=== PATIENT | male | born 1990 | race African-American/Black ===

== ENCOUNTER 2016-11-02 19:20 | Emergency (ER) ==
[2016-11-02 19:32] VITALS: BP 126/74
--- NOTE | 2016-11-02 19:50 | PROVIDER DOCUMENTATION ---
HPI-EENT General - General Chief Complaint: Eye Complaint Stated Complaint: POSS PINK EYE Time Seen by Provider: 11/02/16 19:34 Source: patient Allergies/Adverse Reactions: Patient Allergies Allergy/AdvReac Type Severity Reaction Status Date / Time No Known Allergies Allergy Verified 10/15/16 05:27 - History of Present Illness-EENT General Nature of Presenting Problem: 26 y/o AAM c/o bilateral conjunctivitis, that started 2 days ago in the left eye and then this morning int he right. Denies chemical exposure. States they eyes itch, but do not hurt. Denies fevers, chills, changes in vision or blurry vision, cough, congestion, ear pain, or other symptoms. Denies trauma Review of Systems - Adult - REVIEW OF SYSTEMS - ADULT Constitutional: reports: no symptoms reported. denies: chills, fever, fatique Eyes: reports: see HPI, redness. denies: discharge, dry eyes, decreased vision , blurred vision, double vision, eye pain Ears, Nose, Mouth & Throat: reports: no symptoms reported. denies: ear pain, nose pain, throat pain Cardiovascular: reports: no symptoms reported. denies: chest pain, palpitations Respiratory: reports: no symptoms reported. denies: cough, shortness of breath , wheezing Gastrointestinal: reports: no symptoms reported. denies: abdominal pain, diarrhea, nausea, vomiting Genitourinary: reports: no symptoms reported. denies: dysuria, discharge, frequency, incontinence Musculoskeletal: reports: no symptoms reported Integumentary: reports: no symptoms reported. denies: rash Neurological: reports: no symptoms reported. denies: ataxia, dizziness/vertigo , headache/migraines Psychiatric: reports: no symptoms reported Endocrine: reports: no symptoms reported Hematologic/Lymphatic: reports: no symptoms reported Allergic/Immunologic: reports: no symptoms reported All Other Systems: Reviewed and Negative Past History - Adult - PAST MEDICAL HISTORY-ADULT Review of Records: reports: Old Records Reviewed, Nursing Assessment Review, Medications Reviewed, Social history reviewed & non-contributory. Major Childhood Illnesses: reports: denies history Cardiovascular: reports: denies history Respiratory: reports: asthma Gastrointestinal: reports: denies history Genitourinary: reports: denies history Musculoskeletal: reports: denies history Neurological: reports: denies history Endocrine/Immune: reports: denies history Other Conditions: reports: denies history - PRIOR SURGERIES/PROCEDURES Surgical/Procedure History: reports: other (head surgery as infants) - IMMUNIZATION STATUS Childhood Immunizations: See Nurse Assessment Flu Vaccine: See Nurse Assessment - FAMILY HISTORY Family History: reviewed, not pertinent - SOCIAL HISTORY Smoking: less than 1 pack/day Provider spent 3-5 mins advising pt. on dangers of tobacco.: Discussed manners to quit use, and f/u contacts for add'l counseling. Substance Use: none/never Alcohol Use Frequency: never Physical Exam- EENT - Physical Exam EENT Initial Vital Signs Reviewed: Yes General Appearance: appears well, alert, no apparent distress Eye Exam: bilateral eye: PERRL, EOMI, conjunctival inflammation (with obvious discarge) Ear Exam: bilateral ear: auricle normal, canal normal, TM normal Nasal Exam: normal inspection Throat Exam: normal mouth inspection, pharynx normal Respiratory: chest non-tender, lungs clear, normal breath sounds, no pleuratic chest pain, no respiratory distress, no accessory muscle use. negative: respiratory distress, decreased breath sounds, accessory muscle use, crackles, rales, rhonchi, wheezing Cardiovascular: normal peripheral pulses, regular rate, rhythm, no edema, no gallop, no JVD, no murmur Lymphatic: no adenopathy Extremity: normal gait Integumentary: normal color, normal turgor, warm/dry Neurologic: grossly normal, no motor/sensory deficits Psych/Mental Status: AL, normal mood/affect, normal thought content, normal thought process, oriented x 3 Progress - PLAN OF CARE/RESULTS Progress/Plan/Lab Results: Vital Signs Temp Pulse Resp BP Pulse Ox 11/02/16 19:28 99.0 F 103 H 20 126/74 100 No Known Allergies Allergy (Verified 10/15/16 05:27) Albuterol Sulfate Inhaler [Ventolin Hfa] 2 puff INH Q6H PRN PRN #1 inhaler 07/25 Kenn/Polymyx/Dexameth Oph Oint [Maxitrol Eye Ointment] 1 applicatn BOTH EYES 4XDAY #1 tube 11/02/16 Departure - Departure Time of Disposition Order: 19:45 DIAGNOSIS: Conjunctivitis Qualifiers: Conjunctivitis type: acute Acute conjunctivitis type: bacterial Laterality: bilateral Qualified Code(s): H10.33 - Unspecified acute conjunctivitis, bilateral Disposition: HOME 01 Certified Medical Emergency: Emergent Condition: Stable Additional Instructions: Good hand washing ED Follow Up Instructions: You have been treated by a care provider in the Emergency Department. These instructions are being provided to you so you can have an understanding of how to care for yourself upon discharge. Upon discharge from the Emergency Department, you are responsible for making arrangements for follow-up care by a physician of your choice. Take all prescribed medications as directed. Return to the Emergency Department immediately for any new or worsening symptoms. You may call the Physician Referral phone number at [phone] to obtain a list of Physicians who are taking new patients. Prescriptions: Kenn/Polymyx/Dexameth Oph Oint [Maxitrol Eye Ointment] 1 applicatn BOTH EYES 4XDAY #1 tube Attestation - Physician/ Mid-level Attestation Patient care was provided by Mid-level provider (SCIENCE EDITOR/PA):: Yes Mid-level provider:: Chery Morales Mid-level documentation review:: The Mid-level provider documentation, treatment plan and medical decision making was reviewed by the physician who agrees with all treatment and medical decision making by the MLP.
== END 2016-11-02 20:16 | disposition home or self-care (01) ==
LOC: P.ED 19:20
DX: H10.33 Unspecified acute conjunctivitis, bilateral (principal); J45.909 Unspecified asthma, uncomplicated; F17.210 Nicotine dependence, cigarettes, uncomplicated; Z71.6 Tobacco abuse counseling
CPT/HCPCS: 99282

== ENCOUNTER 2019-11-19 03:02 | Observation (INO) ==
[2019-11-19] MEDS ORDERED: DUONEB (A & A) INH ONE ×3 (03:10→04:34)
[2019-11-19 03:33] LABS: BE -1.5 mmoll (-3.0-3.0); BLOOD TYPE ARTERIAL; HCO3-(ACT) 23.6 mmoll (20.0-26.0); METHB 1.4 % (0.0-1.5); O2(CT) 18.1 mL/dL (15.0-23.0); O2HB 92.4 % (95.0-99.0); PCO2(98.6) 31 mmHg (35-45); PO2(98.6) 68 mmHg (60-100); SAMPLE BLOOD; THB 13.9 g/dL (11.5-17.4); pH(98.6) 7.45 (7.35-7.45)
[2019-11-19 03:35] LABS: ALLEN TEST NO; MODALITY ROOM AIR
--- NOTE | 2019-11-19 04:53 | PROVIDER DOCUMENTATION ---
HPI-Respiratory General - General Chief Complaint: Asthma Attack Stated Complaint: asthma related Time Seen by Provider: 11/19/19 03:09 Source: patient Allergies/Adverse Reactions: Patient Allergies Allergy/AdvReac Type Severity Reaction Status Date / Time No Known Allergies Allergy Verified 11/18/19 22:29 Home Medications: Home Medication List Medication Instructions Recorded Confirmed Last Taken Type Albuterol Sulfate Inhaler 2 puff INH Q6H PRN PRN #1 inhaler 11/19/19 11/19/19 Unknown Rx [Ventolin Hfa] Albuterol Sulfate Inhaler 2 puff INH Q6HR PRN 11/19/19 11/19/19 11/18/19 History [Ventolin Hfa] Levofloxacin [Levaquin] 750 mg PO DAILY #7 tab 11/19/19 11/19/19 Unknown Rx Methylprednisolone [Medrol Dosepak] 4 mg PO DIRECTED #1 pkg 11/19/19 11/19/19 Unknown Rx - History of Present Illness-Resp Nature of Presenting Problem: Patient re-presents to the ED with same sx after being discharged <4 hours prior with the dx of asthma attack. patient notes that he felt better when he left the ED but as soon as he got home, started wheezing again and came back. No other escalation in sx. Quality of Pain: reports: none Severity in ED: reports: moderate Onset/Duration: reports: just prior to arrival Timing: reports: still present Context: reports: recent URI Exposure: reports: unknown cause Cough Quality/Degree: reports: moderate Episode Frequency: frequent episodes Current Respiratory Medication Therapy: Initiated albuterol/atrovent inhale Modifying Factors: improves with: nothing Associated Symptoms: reports: cough, wheezing Similar Symptoms Previously?: Yes (earlier today) Recently seen or treated by another doctor?: Yes (<4 hours ago in this ED) Review of Systems - Adult - REVIEW OF SYSTEMS - ADULT Constitutional: reports: no symptoms reported Eyes: reports: no symptoms reported Ears, Nose, Mouth & Throat: reports: no symptoms reported Cardiovascular: reports: no symptoms reported Respiratory: reports: no symptoms reported Gastrointestinal: reports: no symptoms reported Genitourinary: reports: no symptoms reported Musculoskeletal: reports: no symptoms reported Integumentary: reports: no symptoms reported Neurological: reports: no symptoms reported Psychiatric: reports: no symptoms reported Endocrine: reports: no symptoms reported Hematologic/Lymphatic: reports: no symptoms reported Allergic/Immunologic: reports: no symptoms reported All Other Systems: Reviewed and Negative Past History - Adult - PAST MEDICAL HISTORY-ADULT Review of Records: reports: Old Records Reviewed, Nursing Assessment Review, Medications Reviewed, Social history reviewed & non-contributory. Major Childhood Illnesses: reports: denies history Cardiovascular: reports: denies history Respiratory: reports: asthma Gastrointestinal: reports: denies history Obstetrical/Gynecological: reports: denies history Genitourinary: reports: denies history Musculoskeletal: reports: denies history Neurological: reports: denies history Endocrine/Immune: reports: denies history Other Conditions: reports: denies history - PRIOR SURGERIES/PROCEDURES Surgical/Procedure History: reports: other (head surgery as infants) - IMMUNIZATION STATUS Childhood Immunizations: See Nurse Assessment Flu Vaccine: See Nurse Assessment - FAMILY HISTORY Family History: reviewed, not pertinent Physical Exam-General - PHYSICAL EXAM-ADULT Initial Vital Signs Reviewed: Yes - CONSTITUTIONAL General Appearance: appears well, no apparent distress - EYES Eyes: PERRL/EOMI - HEAD, EARS, NOSE, MOUTH & THROAT HENMT: normocephalic/atraumatic - NECK Neck: non-tender, full range of motion, supple - RESPIRATORY Respiratory: wheezing - CARDIOVASCULAR Cardiovascular: tachycardia - GASTROINTESTINAL (ABDOMEN) Abdominal Exam: normal bowel sounds, non tender, soft Progress - PLAN OF CARE/RESULTS Progress/Plan/Lab Results: Vital Signs - 8 hr 11/19/19 03:06 11/19/19 03:14 Temperature 99.9 F H Pulse Rate 128 H 122 H Respiratory Rate 28 H 18 Blood Pressure 124/63 O2 Sat by Pulse Oximetry 95 96 Laboratory Results - last 24 hr 11/18/19 11/19/19 23:46 03:20 Specimen Type ARTERIAL Sample Site R BRACHIAL pH 7.45 pCO2 31 L pO2 68 HCO3 23.6 Base Excess -1.5 Oxyhemoglobin 92.4 L ABG O2 Sat (Calculated) 18.1 ABG O2 Saturation 97.0 ABG Carboxyhemoglobin 3.30 H ABG Methemoglobin 1.4 Arsalan Test NO A-a O2 Difference 43.0 Total Hemoglobin 13.9 Lactate 2.70 H Blood Gas Modality ROOM AIR FiO2 % 21.0 Magnesium 1.6 Orders Category Date Time Status ABG [RESP] Routine Lab 11/19/19 03:20 Completed MAGNESIUM [CHEM] Stat Lab 11/19/19 03:17 Completed Albuterol 2.5MG/Ipratrop 0.5MG [Duoneb (A & A)] Med 11/19/19 03:10 Discontinued 3 ml INH NOW ONE Albuterol 2.5MG/Ipratrop 0.5MG [Duoneb (A & A)] Med 11/19/19 03:47 Discontinued 3 ml INH NOW ONE Albuterol 2.5MG/Ipratrop 0.5MG [Duoneb (A & A)] Med 11/19/19 04:34 Discontinued 3 ml INH NOW ONE Aerosol Treatments Routine Oth 11/19/19 03:10 Completed Aerosol Treatments Routine Oth 11/19/19 03:48 Completed Aerosol Treatments Stat Oth 11/19/19 03:10 Completed Aerosol Treatments Stat Ot 11/19/19 03:48 Completed - REASSESSMENT Reassessment #1 Time Reassessed: 04:51 Status: unchanged (Patient given a breathing treatment but continues to wheeze. Recommended patient for admission for around the clock steroid and breathing treatment. Patient refuses admission. patient was previously prescribed albuterol, steroid and antibiotic, but did not get prescription filled.) Departure - Departure Date of Disposition Decision: 11/19/19 Time of Disposition Decision: 04:53 DIAGNOSIS: Asthma exacerbation Qualifiers: Asthma severity: moderate Asthma persistence: unspecified Qualified Code(s): J45.901 - Unspecified asthma with (acute) exacerbation Disposition: HOME 01 Certified Medical Emergency: Emergent Condition: Stable Additional Instructions: it is important that you get the prescription (given to you previously) filled. and follow up with your doctor Referrals and Follow-Ups: None,PCP [Primary Care Provider] - - Critical Care Note This patient required my direct & personal management of CC.: No Attestation - Physician/ SIMONA Attestation Patient care was provided by Advanced Practice Provider:: No The physician spent face to face time with patient:: Yes Advanced Practice Provider documentation review:: Supervising physician onsite and consulted in the evaluation and care of this patient. The physician did have a face to face encounter with the patient.
[2019-11-19] MEDS ORDERED: SOLU-MEDROL IV ONE (04:56)
[2019-11-19] MEDS ORDERED: MAG-OX PO ONE (04:56)
[2019-11-19] MEDS ORDERED: ZOFRAN IV PRN ×2 (04:59→08:28)
[2019-11-19] MEDS ORDERED: MOTRIN ONE (05:04)
[2019-11-19] MEDS ORDERED: MOTRIN PO ONE (05:07)
[2019-11-19] MEDS: DUONEB (A & A) INH SCH ×5 (08:21→23:07)
[2019-11-19] MEDS ORDERED: TYLENOL PO PRN (08:28)
[2019-11-19] MEDS ORDERED: DUONEB (A & A) INH PRN (08:28)
[2019-11-19 09:13] LABS: URINE SOURCE CLEAN CATCH
[2019-11-19 09:16] LABS: BILIRUBIN URINE NEGATIVE (NEGATIVE); BLOOD URINE TRACE (NEGATIVE); COLOR YELLOW; GLUCOSE URINE NEGATIVE (NEGATIVE); KETONE URINE TRACE mg/dL (NEGATIVE); LEUKOCYTES URINE LARGE (NEGATIVE); NITRITE URINE NEGATIVE (NEGATIVE); PROTEIN URINE 30 mg/dL (NEGATIVE); SP GRAVITY URINE 1.029; TURBIDITY URINE HAZY (CLEAR); UROBILINOGEN URINE NORMAL (NORMAL)
[2019-11-19 09:17] LABS: UR EPITHELIAL CELLS <10 /HPF (<10); URINE BACTERIA NEGATIVE /HPF; URINE RBC <10 /HPF (<10); URINE WBC TNTC /HPF (<10)
[2019-11-19] MEDS ORDERED: SOLU-MEDROL IV SCH (11:15)
[2019-11-19] MEDS ORDERED: DUONEB (A & A) INH SCH (11:30)
[2019-11-19] MEDS: SOLU-MEDROL IV SCH ×2 (12:26→22:08)
[2019-11-19] MEDS ORDERED: ROBITUSSIN-AC PO PRN (16:58)
[2019-11-19] MEDS ORDERED: ROCEPHIN 1 GM in NS 50 ML IV SCH (19:15)
[2019-11-20] MEDS: DUONEB (A & A) INH SCH ×3 (03:12→11:32)
[2019-11-20] MEDS: SOLU-MEDROL IV SCH ×2 (04:06→12:24)
--- NOTE | 2019-11-20 05:23 | HISTORY AND PHYSICAL ---
CHIEF COMPLAINT: Asthma attack. HISTORY OF PRESENT ILLNESS: Patient is a very pleasant 29-year-old male who has a known history of asthma, uses only an albuterol inhaler that he states uses every day. He actually was seen in the hospital, initially diagnosed with an asthma exacerbation and then he left. He came back noting that he got worse after he went home. ALLERGIES: No known drug allergies. MEDICATIONS: Ventolin inhaler. He was just recently given Levaquin and Medrol Dosepak when he was in the ER and refused to stay. REVIEW OF SYSTEMS: Positive for cough, congestion, increased work of breathing, shortness of breath. Denies any headaches, blurred vision, change in vision. Denies any focalized numbness, tingling, weakness in his extremities. Denies any dysuria, urinary frequency, urgency. PAST MEDICAL HISTORY: Significant only for asthma. FAMILY HISTORY: Positive for asthma. SOCIAL HISTORY: Patient denies smoking or illicit drug use. PHYSICAL EXAMINATION: VITAL SIGNS: Reviewed. Temperature 99 degrees, pulse 128, respiratory 28, BP 124/63, saturation 95% on 2 L. GENERAL: Patient is awake, pleasant. He is in moderate respiratory distress. HEENT: Normocephalic. NECK: Supple. CARDIOVASCULAR: Tachycardia. No murmurs. CHEST: Marked wheezing, markedly decreased breath sounds bilaterally. Moderately labored. ABDOMEN: Soft, nondistended. EXTREMITIES: Moves all extremities. NEUROLOGIC: No changes. ASSESSMENT: 1. Acute asthma exacerbation. 2. Supraventricular tachycardia. 3. Low-grade fever. 4. Hypoxic respiratory failure secondary to his asthma. PLAN: We are going to admit to the hospital. IV fluids, antibiotics, breathing treatments, oxygen. We will recheck a chest x-ray in the a.m. and we will follow. cc: Oracio Byrnes MD
[2019-11-20 09:08] VITALS: BP 128/66
--- NOTE | 2019-11-21 02:16 | DISCHARGE SUMMARY ---
ADMISSION DATE: 11/19/2019 DISCHARGE DATE: 11/20/2019 DISCHARGE DIAGNOSIS: 1. Acute hypoxic respiratory failure, resolved. 2. Ventricular tachycardia, resolved. 3. Acute asthma exacerbation, improved. 4. Low-grade fever, resolved. 5. Volume depletion, resolved. CONSULTATIONS: None. PROCEDURES: None. HOSPITAL COURSE: The patient is a very pleasant 29-year-old male who has a known history of asthma. He presented to the hospital with an asthma attack, was noted to be hypoxic. Therefore, we admitted the hospital, placed him on oxygen, breathing treatments. On discharge, he is much improved. He is not requiring oxygen currently. DISPOSITION: Patient will be discharged home. Discussed with him how to use albuterol nebulizers while he is at home and use his inhaler when he is away from home. Discussed how often to use it. We will discharge him with antibiotics and steroids as well breathing treatments. cc: Oracio Byrnes MD
== END 2019-11-20 13:25 | disposition home or self-care (01) ==
LOC: P.ED 03:02 → INTOOBSV 06:31 → P.EDIPHOLD 06:31 → P.MEDSURG 10:09
PROVIDERS: ATTEND Family Medicine